=== PATIENT | female | born 1965 | race Two or more races ===

== ENCOUNTER → 2023-05-10 | Outpatient (CLI) | payer MEDICARE, MEDICAID | LOC: M WHC 13:46 | PROVIDERS: ATTEND Nurse Practitioner Family | DX: R10.2 Pelvic and perineal pain (principal); N83.202 Unspecified ovarian cyst, left side; N83.201 Unspecified ovarian cyst, right side ==

== ENCOUNTER 2023-08-29 18:00 | Emergency (ER) | payer MEDICARE, MEDICAID ==
[~2023-08-29] VITALS: Ht 167.6 cm; Wt 77.7 kg
[2023-08-29] MEDS ORDERED: DIVA250T67 (18:14)
[2023-08-29] MEDS ORDERED: LEVO125T4 (18:14)
[2023-08-29] MEDS ORDERED: ROSU10TA61 (18:14)
[2023-08-29] MEDS ORDERED: DIVA500T94 (18:14)
[2023-08-29] MEDS ORDERED: CLON1TAB8 (18:14)
[2023-08-29] MEDS ORDERED: CYCL-707 (18:14)
[2023-08-29] MEDS ORDERED: APTI1TAB4 (18:14)
[2023-08-29] MEDS ORDERED: MELO15TA28 (18:14)
[2023-08-29] MEDS ORDERED: ATOR1TAB21 (18:14)
[2023-08-29] MEDS ORDERED: PANT20TA6 (18:14)
[2023-08-29 19:10] LABS: HEMATOCRIT 43.5 % (36.0-47.0); HEMOGLOBIN 15.1 g/dl (12.0-15.5); MEAN CORPUSCULAR VOLUME 98.9 fl (80.0-96.0); WHITE BLOOD COUNT 10.6 10^3/uL (4.0-10.0)
[2023-08-29 19:11] LABS: BASO % 0.3 % (0.0-1.0); EOS # 0.1 10^3/uL (0.0-0.5); EOS % 0.6 % (0.0-3.0); LYMPH # 2.6 10^3/uL (1.5-5.0); LYMPH % 24.2 % (24.0-44.0); MEAN CORPUSCULAR HEMOGLOBIN 34.3 pg (27.0-33.0); MEAN CORPUSCULAR HGB CONC 34.7 g/dl (32.0-36.5); MONO # 0.7 10^3/uL (0.0-0.8); NEUTROPHILS # 7.2 10^3/uL (1.5-8.5); NEUTROPHILS % 67.5 % (36.0-66.0); PLATELET COUNT, AUTOMATED 177 10^3/uL (150-450)
[2023-08-29 19:32] LABS: ALBUMIN 3.8 G/DL (3.2-5.2); ALKALINE PHOSPHATASE 79 U/L (46-116); ALT/SGPT 14 U/L (7.0-40); AST/SGOT 8 U/L (<34); BILIRUBIN,TOTAL 0.3 MG/DL (0.3-1.2); BLOOD UREA NITROGEN 19 MG/DL (9-23); CALCIUM LEVEL 9.3 MG/DL (8.5-10.1); CARBON DIOXIDE LEVEL 27 MMOL/L (20-31); CHLORIDE LEVEL 106 MMOL/L (98-107); GLOMERULAR FILTRATION RATE > 60.0 (>51); GLUCOSE, FASTING 98 MG/DL (60-100); POTASSIUM SERUM 4.1 MMOL/L (3.5-5.1); SODIUM LEVEL 141 MMOL/L (136-145); TOTAL PROTEIN 6.6 G/DL (5.7-8.2)
[2023-08-29 21:22] VITALS: TEMP 97.8
[2023-08-29 21:30] VITALS: BP 134/80; O2SAT 97
== END 2023-08-29 22:00 | disposition home or self-care (01) ==
LOC: M ED 18:00 → EDBD 18:00 → M ED 22:00
DX: S92.355A Nondisplaced fracture of fifth metatarsal bone, left foot, initial encounter for closed fracture (principal); W19.XXXA Unspecified fall, initial encounter; Y92.009 Unspecified place in unspecified non-institutional (private) residence as the place of occurrence of the external cause; Y93.9 Activity, unspecified; Y99.9 Unspecified external cause status; I10 Essential (primary) hypertension; K21.9 Gastro-esophageal reflux disease without esophagitis; E03.9 Hypothyroidism, unspecified; G40.909 Epilepsy, unspecified, not intractable, without status epilepticus; Z96.653 Presence of artificial knee joint, bilateral